=== PATIENT | male | born 1975 | race African-American/Black ===

== ENCOUNTER 2016-11-16 18:41 | Emergency (ER) | payer MEDICARE, OTHER ==
[~2016-11-16] VITALS: Ht 172.7 cm; Wt 68.0 kg
[2016-11-16 22:32] VITALS: BP 132/90
== END 2016-11-16 22:53 | disposition home or self-care (01) ==
LOC: ER 18:50
DX: S80.02XA Contusion of left knee, initial encounter (principal); H60.92 Unspecified otitis externa, left ear; V43.32XA Unspecified car occupant injured in collision with other type car in nontraffic accident, initial encounter; Y93.89 Activity, other specified; Y99.8 Other external cause status; Y92.89 Other specified places as the place of occurrence of the external cause
CPT/HCPCS: 73562